=== PATIENT | female | born 1950 | race Caucasian/White ===

== ENCOUNTER → 2016-04-15 | Outpatient (CLI) | payer BC ==
--- NOTE | 2016-04-15 16:04 | MAMMOGRAPHY REPORT ---
BILATERAL DIGITAL SCREENING MAMMOGRAM WITH CAD: 04/15/2016 CLINICAL HISTORY: Routine screening. Patient has no complaints. TECHNIQUE: Bilateral CC and MLO views were obtained. Current study was also evaluated with a Comput er Aided Detection (CAD) system. COMPARISON: Comparison is made to exams dated: 04/06/2015 mammogram, 04/05/2014 mammogram - [facility], 06/08/2007, 10/23/2009 mammogram, 12/19/2010 mammogram, and 04/01/2012 mammogram - [facility]. BREAST COMPOSITION: The tissue of both breasts is heterogeneously dense, which may obscure small ma sses. FINDINGS: There are benign rim calcifications in the breasts. A 7 mm nodular asymmetry in the anter ior, slightly superior left breast appears similar on all available prior mammograms dating back to at least 2007, therefore likely benign. No new suspicious mass, architectural distortion or cluster of microcalcifications is seen. IMPRESSION: ACR BI-RADS CATEGORY 1: NEGATIVE There is no mammographic evidence of malignancy. A 1 year screening mammogram is recommended. The p atient will receive written notification of the results. Approximately 10% of breast cancers are not detected with mammography. A negative mammographic repor t should not delay biopsy if a clinically suggestive mass is present. Lulu Teran M.D. ay/:04/15/2016 15:32:43 Kettle Worker: Gloria HWANG)(Gabriella), [facility] letter sent: Normal 1/2 BI-RADS Code: ACR BI-RADS Category 1: Negative
== END | disposition home or self-care (01) ==
LOC: C.MAMM 14:53
PROVIDERS: ATTEND Internal Medicine Geriatric Medicine
DX: Z12.31 Encounter for screening mammogram for malignant neoplasm of breast (principal)

== ENCOUNTER → 2016-11-17 | Outpatient (CLI) | payer BC ==
--- NOTE | 2016-11-17 11:58 | DIAGNOSTIC IMAGING REPORT ---
BILATERAL RIBS INCLUDING PA ERECT CHEST (9 VIEWS) CLINICAL HISTORY: Rib pain status post trauma. COMPARISON STUDY: Chest x-ray dated 06/13/2013 FINDINGS: The erect chest reveals no pneumothorax. There is no focal pulmonary consolidation. There are no pleural effusions. Multiple views of the ribs reveal no fractures. It should be noted that rib fractures are often occult on initial radiographic imaging Degenerative changes are present within the thoracic spine. IMPRESSION: 1. No fractures identified 2. No evidence of pneumothorax. Electronically signed by: Rosalio Cronin M.D. 11/17/2016 11:57 AM Dictated Date/Time: 11/17/2016 11:55 AM
--- NOTE | 2016-11-17 12:03 | DIAGNOSTIC IMAGING REPORT ---
L-SPINE MIN 4 VIEWS ROUTINE CLINICAL HISTORY: 66 years-old Female presenting with fall on Thursday, left-sided rib and mid back pain, dysphagia. TECHNIQUE: Frontal, bilateral oblique, and lateral views of the lumbar spine as well as coned in lateral view of the lumbosacral junction were obtained. COMPARISON: Correlation made to CT of the abdomen and pelvis from 2013. FINDINGS: Normal lumbar lordosis. Vertebral bodies maintain normal height and alignment. Intervertebral disc height loss at L3-4 and L4-5 with vacuum disc phenomenon noted. No significant osseous neural foraminal narrowing is apparent. No radiographic evidence of acute fracture or subluxation. Degenerative changes of the thoracic spine noted. Nonobstructive bowel gas pattern. Visualized portion of the lower ribs does not demonstrate a displaced rib fracture. Sacrum grossly intact. IMPRESSION: Degenerative changes of the lumbar spine without radiographic evidence of acute osseous injury. Electronically signed by: Triston Simental M.D. 11/17/2016 12:02 PM Dictated Date/Time: 11/17/2016 11:59 AM
--- NOTE | 2016-11-17 12:27 | DIAGNOSTIC IMAGING REPORT ---
THORACIC SPINE 3 VIEWS ROUTINE CLINICAL HISTORY: Back pain following fall from standing. COMPARISON STUDY: No previous studies for comparison. FINDINGS: The exam is mildly compromised by motion artifact. There is mild dextroscoliosis of the midthoracic spine. Vertebral body heights are maintained. No acute thoracic spine fracture is identified. There is mild multilevel degenerative disc disease. IMPRESSION: 1. No acute thoracic spine fracture identified. 2. Study mildly compromised by motion artifact. 3. Mild dextroscoliosis of the midthoracic spine and mild multilevel degenerative disc disease. Electronically signed by: Garth Aparicio M.D. 11/17/2016 12:26 PM Dictated Date/Time: 11/17/2016 12:24 PM
[2016-11-17 14:10] LABS: BLOOD UREA NITROGEN 14 mg/dl (7-18); CARBON DIOXIDE 30 mmol/L (21-32); CHLORIDE 106 mmol/L (98-107); CHOLESTEROL 236 mg/dl (0-200); GLUCOSE 90 mg/dl (70-99); SODIUM 141 mmol/L (136-145)
[2016-11-17 14:22] LABS: CHOLESTEROL/HDL RATIO 3.5; HDL CHOLESTEROL 67 mg/dl; LDL CHOLESTEROL CALCULATED 140 mg/dl; TRIGLYCERIDES 144 mg/dl (0-150); VERY LOW DENSITY LIPOPROT CALC 29 mg/dl
== END | disposition home or self-care (01) ==
LOC: C.RADBC 11:16
PROVIDERS: ATTEND Physician Assistant
DX: M85.80 Other specified disorders of bone density and structure, unspecified site (principal); E78.5 Hyperlipidemia, unspecified; R13.10 Dysphagia, unspecified; W19.XXXA Unspecified fall, initial encounter; M51.36 Other intervertebral disc degeneration, lumbar region

== ENCOUNTER → 2016-12-09 | Outpatient (CLI) | payer BC | END | disposition home or self-care (01) | LOC: C.MAMM 15:30 | PROVIDERS: ATTEND Physician Assistant | DX: M85.88 Other specified disorders of bone density and structure, other site (principal); M85.851 Other specified disorders of bone density and structure, right thigh; M85.852 Other specified disorders of bone density and structure, left thigh ==

== ENCOUNTER → 2016-12-30 | Outpatient (CLI) | payer BC ==
--- NOTE | 2016-12-30 14:03 | DIAGNOSTIC IMAGING REPORT ---
L FOOT MIN 3 VIEWS ROUTINE HISTORY: 66 years-old Female LEFT FOOT PAIN acute left foot pain without reported trauma COMPARISON: None available TECHNIQUE: 3 views of the left foot FINDINGS: Bones are mildly demineralized. Moderate degenerative changes of the first MTP joint. Multidigit interphalangeal osteoarthritis. There is no acute fracture or dislocation. Type II accessory navicular. No stress fracture. Enthesophyte of the plantar calcaneus. Mild dorsal forefoot soft tissue swelling. IMPRESSION: 1. Mild dorsal forefoot soft tissue swelling without acute fracture or dislocation. 2. Multifocal degenerative changes as above including moderate first MTP joint osteoarthritis with mild bone demineralization. The above report was generated using voice recognition software. It may contain grammatical, syntax or spelling errors. Electronically signed by: Antonio Ramirez M.D. 12/30/2016 2:02 PM Dictated Date/Time: 12/30/2016 2:00 PM
== END | disposition home or self-care (01) ==
LOC: C.RAD1850 13:25
PROVIDERS: ATTEND Internal Medicine
DX: S99.922A Unspecified injury of left foot, initial encounter (principal); X58.XXXA Exposure to other specified factors, initial encounter

== ENCOUNTER → 2017-04-16 | Outpatient (CLI) | payer BC ==
--- NOTE | 2017-04-17 15:26 | MAMMOGRAPHY REPORT ---
BILATERAL DIGITAL SCREENING MAMMOGRAM TOMOSYNTHESIS WITH CAD: 04/16/2017 CLINICAL HISTORY: Routine screening. TECHNIQUE: Breast tomosynthesis in addition to standard 2D mammography was performed. Current study was also evaluated with a Computer Aided Detection (CAD) system. COMPARISON: Comparison is made to exams dated: 04/15/2016 mammogram, 04/06/2015 mammogram, 04/05/2014 ma mmogram, 04/04/2013 mammogram, 04/01/2012 mammogram, and 12/19/2010 mammogram - [facility]. BREAST COMPOSITION: The tissue of both breasts is heterogeneously dense, which may obscure small mas ses. FINDINGS: No suspicious masses, calcifications, or areas of architectural distortion are noted in ei ther breast. There has been no significant interval change compared to prior exams. IMPRESSION: ACR BI-RADS CATEGORY 1: NEGATIVE There is no mammographic evidence of malignancy. A 1 year screening mammogram is recommended. The pa tient will receive written notification of the results. Approximately 10% of breast cancers are not detected with mammography. A negative mammographic report should not delay biopsy if a clinically suggestive mass is present. Roopa Mckenzie M.D. /:04/16/2017 15:51:53 Agricultural Researcher: Mansoor MCCALLUM(Saman)(Gabriella), [facility] letter sent: Normal 1/2 BI-RADS Code: ACR BI-RADS Category 1: Negative
== END | disposition home or self-care (01) ==
LOC: C.MAMM 15:28
PROVIDERS: ATTEND Internal Medicine Geriatric Medicine
DX: Z12.31 Encounter for screening mammogram for malignant neoplasm of breast (principal); S99.922A Unspecified injury of left foot, initial encounter; X58.XXXA Exposure to other specified factors, initial encounter